=== PATIENT | male | born 1975 | race African-American/Black ===

== ENCOUNTER 2024-04-21 19:14 | Emergency (ER) | payer OTHER ==
[2024-04-21 19:25] VITALS: BP 129/91; PULSE 80; RESP 20; TEMP 98.2; BMI 29.0
[2024-04-21] MEDS: LIDOCAINE 5% TOPICAL PATCH TP ONE (21:06)
[2024-04-21] MEDS ORDERED: LIDOCAINE 4% PATCH TP ONE (21:06)
[2024-04-21] MEDS ORDERED: LIDOCAINE PATCH REMOVAL MC SCH (22:00)
== END 2024-04-21 21:42 | disposition home or self-care (01) ==
LOC: JER 19:14 → JERFT 19:14
DX: M54.9 Dorsalgia, unspecified (principal); M79.604 Pain in right leg; M79.605 Pain in left leg; V43.52XA Car driver injured in collision with other type car in traffic accident, initial encounter; Y92.410 Unspecified street and highway as the place of occurrence of the external cause
CPT/HCPCS: 99283-25